=== PATIENT | female | born 1995 | race Caucasian/White ===

== ENCOUNTER 2017-01-27 23:55 | Emergency (ER) | payer OTHER ==
[~2017-01-27] VITALS: Ht 167.6 cm; Wt 62.6 kg
[2017-01-28 01:56] LABS: INFLUENZA A VIRAL ANTIGEN NEGATIVE; INFLUENZA B VIRAL ANTIGEN NEGATIVE
[2017-01-28] MEDS ORDERED: ZITHROMAX Z-PA250 MG PO (03:10)
[2017-01-28 03:22] VITALS: BP 129/81
[2017-01-28] MEDS ORDERED: ROBITUSSIN AC,T10 ML PO (21:10)
[2017-01-28] MEDS ORDERED: PROAIR HFA8.5 GM IH (21:10)
== END 2017-01-28 03:25 | disposition home or self-care (01) ==
LOC: EME 23:55
PROVIDERS: Emergency Medicine
DX: J01.90 Acute sinusitis, unspecified (principal); F17.200 Nicotine dependence, unspecified, uncomplicated; J45.909 Unspecified asthma, uncomplicated
CPT/HCPCS: 71020; 87502; 99281; 99285

== ENCOUNTER 2017-01-28 18:56 | Emergency (ER) | payer OTHER ==
[~2017-01-28] VITALS: Ht 167.6 cm; Wt 64.2 kg
[~2017-01-28 18:56] MED LIST: ZITHROMAX Z-PA250 MG PO
[2017-01-28] MEDS ORDERED: PROAIR HFA8.5 GM IH (21:10)
[2017-01-28] MEDS ORDERED: ROBITUSSIN AC,T10 ML PO (21:10)
[2017-01-28 22:14] VITALS: BP 126/77
== END 2017-01-28 22:14 | disposition home or self-care (01) ==
LOC: EME 18:56 → EXP 18:56
DX: J40 Bronchitis, not specified as acute or chronic (principal); R07.0 Pain in throat; H92.03 Otalgia, bilateral; F17.200 Nicotine dependence, unspecified, uncomplicated
CPT/HCPCS: 71020; 99281; 99284; J8540

== ENCOUNTER 2017-03-11 18:52 | Emergency (ER) | payer OTHER ==
[~2017-03-11] VITALS: Ht 167.6 cm; Wt 62.6 kg
[~2017-03-11 18:52] MED LIST changes: +PROAIR HFA8.5 GM IH; +ROBITUSSIN AC,T10 ML PO
[2017-03-11 19:20] VITALS: BP 142/81
[2017-03-11 21:21] LABS: ADD MIUA? NO; BILIRUBIN NEGATIVE; BLOOD NEGATIVE; COLOR YELLOW ((YELLOW)); GLUCOSE (STRIP) NEGATIVE; KETONES NEGATIVE; LEUKOCYTES NEGATIVE; NITRITE NEGATIVE; PROTEIN (STRIP) NEGATIVE; SPECIFIC GRAVITY 1.009 (1.000-1.030); UCUL ADDED? NO; UROBILINOGEN 0.2 MG/DL (0.2-1.0)
[2017-03-11 21:26] LABS: INTERNAL CONTROL VALID? YES
[2017-03-11] MEDS ORDERED: ROBITUSSIN AC,T10 ML PO (22:55)
== END 2017-03-11 23:15 | disposition home or self-care (01) ==
LOC: EME 18:52
PROVIDERS: Physician Assistant
DX: J06.9 Acute upper respiratory infection, unspecified (principal); J45.909 Unspecified asthma, uncomplicated
CPT/HCPCS: 71020; 81003; 84703; 99281; 99284

== ENCOUNTER 2017-07-03 00:24 | Emergency (ER) | payer OTHER ==
[~2017-07-03] VITALS: Ht 165.1 cm; Wt 63.9 kg
[2017-07-03 01:42] LABS: HEMATOCRIT 36.7 % (36.0-46.0); HEMOGLOBIN 12.6 G/DL (11.9-15.5); MCH 30.9 PG (29.0-34.0); MCHC 34.3 G/DL (30.0-36.0); PLATELET COUNT 185 K/uL (156-360); RBC DIS.WIDTH-CV 11.8 % (11.8-14.6); RBC DIS.WIDTH-SD 38.7 % (39-53); RED BLOOD COUNT 4.08 M/uL (3.80-5.20)
[2017-07-03 01:50] LABS: CHLORIDE 104 mEq/L (99-109); POTASSIUM 3.6 mEq/L (3.7-5.4); SODIUM 136 mEq/L (136-147)
[2017-07-03 01:52] LABS: GLUCOSE 153 mg/dL (70-99)
[2017-07-03 01:56] LABS: CREATININE 0.8 mg/dL (0.6-1.3); GFR ESTIMATE (CALCULATED) > 59 mL/min/
[2017-07-03 01:57] LABS: UREA NITROGEN (BUN) 10 mg/dL (9-23)
[2017-07-03 02:20] LABS: QUANTITATIVE HCG 29172.8 MIU/ML
[2017-07-03 02:26] LABS: APPEARANCE CLEAR ((CLEAR)); BILIRUBIN NEGATIVE; BLOOD NEGATIVE; COLOR YELLOW ((YELLOW)); GLUCOSE (STRIP) NEGATIVE; KETONES NEGATIVE; LEUKOCYTES NEGATIVE; NITRITE NEGATIVE; PROTEIN (STRIP) NEGATIVE; SPECIFIC GRAVITY 1.017 (1.000-1.030); UCUL ADDED? NO; UROBILINOGEN 0.2 MG/DL (0.2-1.0)
[2017-07-03] MEDS ORDERED: REGLAN10 MG PO (04:51)
[2017-07-03 05:31] VITALS: BP 123/84
== END 2017-07-03 05:32 | disposition home or self-care (01) ==
LOC: EME 00:24
PROVIDERS: Emergency Medicine
DX: O21.9 Vomiting of pregnancy, unspecified (principal); Z3A.01 Less than 8 weeks gestation of pregnancy; O99.511 Diseases of the respiratory system complicating pregnancy, first trimester; J45.909 Unspecified asthma, uncomplicated; Z87.891 Personal history of nicotine dependence
CPT/HCPCS: 76801; 80048; 81003; 84702; 85027; 99281; 99285; J2765; J7030

== ENCOUNTER 2017-08-25 23:05 | Emergency (ER) | payer OTHER ==
[~2017-08-25] VITALS: Ht 167.6 cm; Wt 65.9 kg
[~2017-08-25 23:05] MED LIST changes: +REGLAN10 MG PO
[2017-08-25 23:45] VITALS: BP 124/75
[2017-08-26 00:08] LABS: HEMATOCRIT 36.1 % (36.0-46.0); HEMOGLOBIN 12.5 G/DL (11.9-15.5); MCH 30.8 PG (29.0-34.0); MCHC 34.6 G/DL (30.0-36.0); MCV 88.9 FL (83-99); PLATELET COUNT 179 K/uL (156-360); RBC DIS.WIDTH-CV 11.9 % (11.8-14.6); RBC DIS.WIDTH-SD 38.4 % (39-53); RED BLOOD COUNT 4.06 M/uL (3.80-5.20); WHITE BLOOD COUNT 10.4 K/uL (4.1-10.2)
[2017-08-26 00:16] LABS: APPEARANCE SL.HAZY ((CLEAR)); BILIRUBIN NEGATIVE; BLOOD NEGATIVE; COLOR YELLOW ((YELLOW)); GLUCOSE (STRIP) NEGATIVE; KETONES NEGATIVE; LEUKOCYTES NEGATIVE; NITRITE NEGATIVE; PROTEIN (STRIP) NEGATIVE; SPECIFIC GRAVITY 1.017 (1.000-1.030); UROBILINOGEN 0.2 MG/DL (0.2-1.0)
[2017-08-26 00:21] LABS: BACTERIA RARE /HPF; EPITHELIAL CELLS 2+ /HPF; MUCUS TRACE /LPF; RED BLOOD CELLS 0-5 /HPF (0-5); UCUL ADDED? NO; WHITE BLOOD CELLS 0-5 /HPF (0-5)
[2017-08-26 00:22] LABS: ALBUMIN 3.9 g/dL (3.2-4.8)
[2017-08-26 00:23] LABS: CHLORIDE 106 mEq/L (99-109); SODIUM 138 mEq/L (136-147)
[2017-08-26 00:25] LABS: GLUCOSE 92 mg/dL (70-99); TOTAL PROTEIN 6.8 g/dL (6.4-8.3)
[2017-08-26 00:27] LABS: TOTAL BILIRUBIN 0.3 mg/dL (0.0-1.0)
[2017-08-26 00:28] LABS: ALKALINE PHOSPHATASE 55 IU/L (3-129)
[2017-08-26 00:29] LABS: CREATININE 0.7 mg/dL (0.6-1.3); GFR ESTIMATE (CALCULATED) > 59 mL/min/
[2017-08-26 00:30] LABS: AST (GOT) 16 IU/L (2-34); UREA NITROGEN (BUN) 11 mg/dL (9-23)
[2017-08-26 00:31] LABS: ALT (GPT) 11 IU/L (3-49)
== END 2017-08-26 03:15 | disposition left against medical advice (07) ==
LOC: EME 23:05
DX: G43.909 Migraine, unspecified, not intractable, without status migrainosus (principal); Z53.21 Procedure and treatment not carried out due to patient leaving prior to being seen by health care provider
CPT/HCPCS: 80053; 81003; 84702; 85027

== ENCOUNTER → 2017-11-25 | Outpatient (CLI) | payer OTHER ==
[~2017-11-25] VITALS: Ht 167.6 cm; Wt 70.0 kg
[~2017-11-25] MED LIST changes: +BUSPAR7.5 MG PO; +PRENATAL TABLE1 EAC3 PO
[2017-11-25 11:42] VITALS: BP 155/87
== END | disposition home or self-care (01) ==
LOC: IVINF 11:00
DX: Z34.80 Encounter for supervision of other normal pregnancy, unspecified trimester (principal); Z31.82 Encounter for Rh incompatibility status; Z3A.00 Weeks of gestation of pregnancy not specified; Z67.91 Unspecified blood type, Rh negative
CPT/HCPCS: 96372; J2790